=== PATIENT | female | born 1980 ===

== ENCOUNTER 2020-02-11 19:13 | Emergency (ER) | payer SELFPAY ==
[~2020-02-11] VITALS: Ht 175.3 cm; Wt 79.4 kg
[~2020-02-11 19:13] MED LIST: CEPH500 PO; HYDACE5 PO; NAPR500 PO; SULTRIDS PO
[2020-02-11] MEDS ORDERED: ONDA4ODT MM (21:54)
[2020-02-11] MEDS ORDERED: Norco 10-325 T1 EACH PO (21:54)
== END 2020-02-11 22:09 | disposition home or self-care (01) ==
LOC: ER 19:13
DX: S02.641A Fracture of ramus of right mandible, initial encounter for closed fracture (principal); T74.11XA Adult physical abuse, confirmed, initial encounter; F17.200 Nicotine dependence, unspecified, uncomplicated; Y04.2XXA Assault by strike against or bumped into by another person, initial encounter
CPT/HCPCS: 70486; 96372; 99284-25; A9270; J1885